=== PATIENT | female | born 2000 | race Two or more races ===

== ENCOUNTER 2021-06-03 17:10 | Emergency (ER) | payer SELFPAY ==
[~2021-06-03] VITALS: Ht 165.1 cm; Wt 47.7 kg
[2021-06-03 18:19] LABS: BASO # 0.1 x10^3/uL (0.0-0.2); BASO % 1 % (0-3); EOS # 0.2 x10^3/uL (0.0-0.7); EOS % 3 % (0-3); HEMATOCRIT 37.3 % (36.0-47.0); HEMOGLOBIN 12.2 g/dL (12.0-15.5); LYMPH # 2.6 x10^3/uL (1.0-4.8); LYMPH % 45 % (24-48); MEAN CORPUSCULAR HEMOGLOBIN 30 pg (25-35); MEAN CORPUSCULAR HGB CONC 33 g/dL (31-37); MEAN CORPUSCULAR VOLUME 90 fL (79-100); MONO # 0.4 x10^3/uL (0.0-1.1); MONO % 7 % (0-9); NEUT # 2.6 x10^3/uL (1.8-7.7); NEUT % 44 % (31-73); PLATELET COUNT 286 x10^3/uL (140-400); RED BLOOD COUNT 4.14 x10^6/uL (3.50-5.40); RED CELL DISTRIBUTION WIDTH 13.8 % (11.5-14.5); WHITE BLOOD COUNT 5.8 x10^3/uL (4.0-11.0)
--- NOTE | 2021-06-03 18:21 | PHYS DOC ---
Past Medical History Past Surgical History: No Surgical History General Adult EDM: Chief Complaint: VAGINAL BLEEDING HPI: HPI: Patient is a 21 year old female who presents with vaginal bleeding and abdominal cramping that began 2 weeks ago. Patient states 3 weeks ago she took Plan B. She states she was seen at a local clinic today and was sent to the ED for possible retained products of . Patient states she uses 1 feminine pad per day. Review of Systems: Review of Systems: Constitutional: Denies fever or chills. [] GI: Reports abdominal cramping, vaginal bleeding. Denies nausea, vomiting, bloody stools or diarrhea. [] : Denies dysuria. [] Musculoskeletal: Denies back pain or joint pain. [] Integument: Denies rash. [] Neurologic: Denies headache, focal weakness or sensory changes. [] ] Psychiatric: Denies depression or anxiety. [] Heart Score: C/O Chest Pain: N/A Risk Factors: Risk Factors: DM, Current or recent (<one month) smoker, HTN, HLP, family history of CAD, obesity. Risk Scores: Score 0 - 3: 2.5% MACE over next 6 weeks - Discharge Home Score 4 - 6: 20.3% MACE over next 6 weeks - Admit for Clinical Observation Score 7 - 10: 72.7% MACE over next 6 weeks - Early Invasive Strategies Allergies: Allergies: Allergies Coded Allergies Type Severity Reaction Last Updated Verified No Known Drug Allergies 06/03/21 No Physical Exam: PE: Constitutional: Well developed, well nourished, no acute distress, non-toxic appearance. [] Abdomen: Bowel sounds normal, soft, no tenderness, no masses, no pulsatile masses. [] Pelvic exam External pelvic appears normal, cervix is visualized, closed, no CMT, no adnexal tenderness, trace amount of bright red blood in the vaginal vault Skin: Warm, dry, no erythema, no rash. [] Back: No tenderness, no CVA tenderness. [] Extremities: No tenderness, no cyanosis, no clubbing, ROM intact, no edema. [] Neurologic: Alert and oriented X 3, normal motor function, normal sensory f unction, no focal deficits noted. [] Psychologic: Affect normal, judgement normal, mood normal. [] Current Patient Data: Labs: Laboratory Tests Test 06/03/21 17:25 POC Urine HCG, Qualitative Hcg negative (Negative) Microbiology 06/03/21 Wet Prep - Final, Complete Vital Signs: Vital Signs Date Time Temp Pulse Resp B/P (MAP) Pulse Ox O2 Delivery O2 Flow Rate FiO2 06/03/21 17:12 98.2 96 20 131/86 (101) 99 Room Air 98.2 EKG: EKG: [] Radiology/Procedures: Radiology/Procedures: []PROCEDURE: PELVIS W/TV EXAM: ULTRASOUND PELVIS INDICATION: Reason: vag bleeding for two weeks / Spl. Instructions: / History: . Last menstrual period was 05/25/2021. COMPARISON: None available. TECHNIQUE: Transvaginal sonography was performed. FINDINGS: Uterus measures 6.0 x 4.7 x 3.2 cm. Endometrium is 4 mm in thickness. Right ovary measures 2.3 x 2.0 x 1.1 cm. Left ovary measures 2.1 x 2.9 x 1.6 cm. Vascular flow identified in the ovaries bilaterally. No free fluid identified and pelvis IMPRESSION: Normal appearance of the uterus and ovaries. No abnormal endometrial thickening or internal vascular flow identified. Electronically signed by: Jason Flor MD (06/03/2021 7:19 PM) [facility] DICTATED and SIGNED BY: JASON FLOR MD DATE: 06/03/21 [id number] 0 Course & Med Decision Making: Course & Med Decision Making Pertinent Labs and Imaging studies reviewed. (See chart for details) This is a 21-year-old female patient presenting to the ED today with vaginal bleeding that began 2 weeks ago. 3 weeks ago she took Plan B. Negative urine hCG. Beta hCG less than one, CBC CMP UA negative for any acute findings. Pelvic ultrasound negative for any acute findings. Discharge to home. Follow-up with OB for dysfunctional uterine bleeding. Dragon Disclaimer: Dragon Disclaimer: This electronic medical record was generated, in whole or in part, using a voice recognition dictation system. Departure Departure Impression: Primary Impression: Dysfunctional uterine bleeding Disposition: HOME / SELF CARE / HOMELESS Condition: STABLE Referrals: NO PCP (PCP) KONG KIMBALL MD Follow-up with your PRODUCT SAFETY PROFESSIONAL as soon as possible Patient Instructions: Uterine Bleeding, Dysfunctional Additional Instructions: You were evaluated in the emergency room for dysfunctional uterine bleeding. We did an ultrasound of your pelvis which was negative for any acute findings, your test is negative. Your lab work is negative for any acute findings. Please follow-up with your doctor in 1 week or the provided PRODUCT SAFETY PROFESSIONAL come back to the ED at any point symptoms worsen. GILBERT WOOD APRN Jun 03, 2021 18:20
[2021-06-03 18:44] LABS: CALCIUM 8.8 mg/dL (8.5-10.1); CREATININE 0.8 mg/dL (0.6-1.0); GFR 89.7; POTASSIUM 3.6 mmol/L (3.5-5.1)
[2021-06-03 18:50] LABS: ALBUMIN/GLOBULIN RATIO 1.2 (1.0-1.7); TOTAL BILIRUBIN 0.5 mg/dL (0.2-1.0); TOTAL PROTEIN 7.3 g/dL (6.4-8.2)
[2021-06-03 18:57] LABS: BILIRUBIN,URINE NEGATIVE (NEG); CLARITY,URINE CLEAR; COLOR,URINE YELLOW; NITRITE,URINE NEGATIVE (NEG); PH,URINE 6.5 (<5.0-8.0); PROTEIN,URINE NEGATIVE (NEG-TRACE)
[2021-06-03 19:03] LABS: BACTERIA,URINE 0 /HPF (0-FEW); RBC,URINE 20-40 /HPF (0-2); WBC,URINE OCC /HPF (0-4)
--- NOTE | 2021-06-03 19:22 | RAD ---
EXAM: ULTRASOUND PELVIS INDICATION: Reason: vag bleeding for two weeks / Spl. Instructions: / History: . Last menstrual per iod was 05/25/2021. COMPARISON: None available. TECHNIQUE: Transvaginal sonography was performed. FINDINGS: Uterus measures 6.0 x 4.7 x 3.2 cm. Endometrium is 4 mm in thickness. Right ovary measures 2.3 x 2.0 x 1.1 cm. Left ovary measures 2.1 x 2.9 x 1.6 cm. Vascular flow identified in the ovaries bilaterally. No free fluid identified and pelvis IMPRESSION: Normal appearance of the uterus and ovaries. No abnormal endometrial thickening or internal vascular flow identified. Electronically signed by: Mally France MD (06/03/2021 7:19 PM) [facility]
[2021-06-03 19:30] VITALS: BP 128/80
[2021-06-07 18:09] LABS: GC PROBE Negative (Negative)
== END 2021-06-03 19:53 | disposition home or self-care (01) ==
LOC: ER 17:10
DX: N93.8 Other specified abnormal uterine and vaginal bleeding (principal); R10.9 Unspecified abdominal pain
CPT/HCPCS: 36415; 76830; 76856; 80053; 81001; 81025; 84702; 85025; 87491; 87591; 99284; Q0111